=== PATIENT | male | born 1950 | race Two or more races ===

== ENCOUNTER 2017-11-25 11:44 | Outpatient (CLI) | payer OTHER ==
[~2017-11-25 11:44] MED LIST: CARDIZEM CD300 MG; CARDURA8 MG; CEFADROXIL500 MG PO; LISINOPRIL40 MG; TRAMADOL HCL50 MG PO
== END 2017-11-25 11:50 | disposition home or self-care (01) ==
LOC: LAB 11:44
DX: N39.0 Urinary tract infection, site not specified (principal); D68.8 Other specified coagulation defects

== ENCOUNTER 2017-11-25 12:07 | Outpatient (CLI) | payer OTHER | END 2017-11-25 14:40 | disposition home or self-care (01) | LOC: RAD 12:07 | DX: M20.41 Other hammer toe(s) (acquired), right foot (principal); M20.42 Other hammer toe(s) (acquired), left foot ==

== ENCOUNTER 2017-11-26 08:25 | Outpatient (CLI) | payer OTHER | END 2017-11-26 08:29 | disposition home or self-care (01) | LOC: LAB 08:25 | DX: D68.8 Other specified coagulation defects (principal); N39.0 Urinary tract infection, site not specified ==

== ENCOUNTER 2018-03-14 10:21 | Outpatient (CLI) | payer OTHER | END 2018-03-14 10:51 | disposition home or self-care (01) | LOC: RX STUDY 10:21 | DX: L03.317 Cellulitis of buttock (principal); D12.6 Benign neoplasm of colon, unspecified; R13.14 Dysphagia, pharyngoesophageal phase; Z86.010 Personal history of colon polyps ==

== ENCOUNTER 2018-12-17 10:11 | Outpatient (CLI) | payer OTHER | END 2018-12-17 15:49 | disposition home or self-care (01) | LOC: LAB 10:11 | DX: M15.0 Primary generalized (osteo)arthritis (principal); E03.8 Other specified hypothyroidism; R27.8 Other lack of coordination; D51.8 Other vitamin B12 deficiency anemias; G72.89 Other specified myopathies; E11.40 Type 2 diabetes mellitus with diabetic neuropathy, unspecified ==

== ENCOUNTER → 2019-01-13 | Outpatient (CLI) | payer OTHER ==
[~2019-01-13] MED LIST changes: +DOXYCYCLINE HY100 MG PO
== END | disposition home or self-care (01) ==
LOC: NUCLEAR 13:00
DX: R55 Syncope and collapse (principal)

== ENCOUNTER 2019-01-18 13:52 | Inpatient (IN) | payer OTHER ==
[~2019-01-18] VITALS: Ht 185.4 cm; Wt 81.6 kg
[~2019-01-18 13:52] MED LIST changes: -DOXYCYCLINE HY100 MG PO
[2019-01-24] MEDS ORDERED: TRAMADOL HCL50 MG PO (08:26)
[2019-01-24] MEDS ORDERED: DOXYCYCLINE HY100 MG PO (08:26)
== END 2019-01-24 12:51 | disposition home or self-care (01) | DRG 199 ==
LOC: ER 13:52 → SEC-K 14:42 → MEDJ 14:42 → SURH 14:42 → MEDJ 17:49 → SURH 01-19 20:13
PROVIDERS: ADMIT Surgery
PROC: 4A12X4Z Monitoring of Cardiac Electrical Activity, External Approach (ICD-10-PCS; 2019-01-18)
PROC: BW21ZZZ Computerized Tomography (CT Scan) of Abdomen and Pelvis (ICD-10-PCS; 2019-01-18)
PROC: BW24ZZZ Computerized Tomography (CT Scan) of Chest and Abdomen (ICD-10-PCS; 2019-01-18)
PROC: 0W9B00Z Drainage of Left Pleural Cavity with Drainage Device, Open Approach (ICD-10-PCS; principal; 2019-01-18 16:00)
PROC: B246ZZZ Ultrasonography of Right and Left Heart (ICD-10-PCS; 2019-01-20)
PROC: 3E0F7GC Introduction of Other Therapeutic Substance into Respiratory Tract, Via Natural or Artificial Opening (ICD-10-PCS; 2019-01-23)
DX: S27.0XXA Traumatic pneumothorax, initial encounter (principal); J18.1 Lobar pneumonia, unspecified organism; J98.11 Atelectasis; J90 Pleural effusion, not elsewhere classified; I13.0 Hypertensive heart and chronic kidney disease with heart failure and stage 1 through stage 4 chronic kidney disease, or unspecified chronic kidney disease; I69.351 Hemiplegia and hemiparesis following cerebral infarction affecting right dominant side; W01.0XXA Fall on same level from slipping, tripping and stumbling without subsequent striking against object, initial encounter; N18.1 Chronic kidney disease, stage 1; I50.89 Other heart failure; E78.49 Other hyperlipidemia; I25.10 Atherosclerotic heart disease of native coronary artery without angina pectoris; I49.8 Other specified cardiac arrhythmias; D50.0 Iron deficiency anemia secondary to blood loss (chronic); K57.30 Diverticulosis of large intestine without perforation or abscess without bleeding

== ENCOUNTER 2019-03-29 13:47 | Outpatient (CLI) | payer OTHER ==
[~2019-03-29 13:47] MED LIST changes: +DOXYCYCLINE HY100 MG PO
== END 2019-03-29 15:46 | disposition home or self-care (01) ==
LOC: TOM 13:47
DX: S05.92XA Unspecified injury of left eye and orbit, initial encounter (principal)

== ENCOUNTER 2019-04-08 | Outpatient (CLI) | payer OTHER | END 2019-04-08 15:00 | disposition home or self-care (01) | LOC: LAB | DX: Z01.812 Encounter for preprocedural laboratory examination (principal); Z01.810 Encounter for preprocedural cardiovascular examination ==

== ENCOUNTER → 2019-10-20 | Outpatient (CLI) | payer OTHER | END | disposition home or self-care (01) | LOC: MRI 10-19 14:50 | DX: M54.5 Low back pain (principal) | CPT/HCPCS: 72148 ==

== ENCOUNTER 2020-09-11 10:36 | Outpatient (CLI) | payer OTHER | END 2020-09-11 10:45 | disposition home or self-care (01) | LOC: NUCLEAR 10:36 | PROVIDERS: ATTEND Internal Medicine Cardiovascular Disease | DX: I50.22 Chronic systolic (congestive) heart failure (principal) | CPT/HCPCS: 78472; 78496; A9560 ==

== ENCOUNTER 2020-10-03 20:08 | Emergency (ER) | payer OTHER ==
[~2020-10-03] VITALS: Ht 180.3 cm; Wt 88.0 kg
[2020-10-03] MEDS ORDERED: CARVEDILOL12.5 MG (20:29)
[2020-10-03] MEDS ORDERED: [UNRECOGNIZED DRUG - OTHER] (20:30)
== END 2020-10-03 22:38 | disposition home or self-care (01) ==
LOC: ER 20:08
DX: S01.82XA Laceration with foreign body of other part of head, initial encounter (principal); S80.02XA Contusion of left knee, initial encounter; W18.09XA Striking against other object with subsequent fall, initial encounter; Y93.89 Activity, other specified; Y92.098 Other place in other non-institutional residence as the place of occurrence of the external cause; Y99.8 Other external cause status

== ENCOUNTER → 2020-10-09 | Emergency (ER) | payer OTHER ==
[~2020-10-09] MED LIST changes: +CARVEDILOL12.5 MG; +[UNRECOGNIZED DRUG - OTHER]
== END | disposition left against medical advice (07) ==
LOC: ER 16:34
DX: Z53.20 Procedure and treatment not carried out because of patient's decision for unspecified reasons (principal)

== ENCOUNTER 2020-10-14 15:41 | Emergency (ER) | payer OTHER ==
[~2020-10-14] VITALS: Ht 180.3 cm; Wt 88.0 kg
== END 2020-10-14 18:35 | disposition home or self-care (01) ==
LOC: ER 15:41
DX: Z48.02 Encounter for removal of sutures (principal)

== ENCOUNTER 2023-06-07 11:48 | Inpatient (IN) | payer OTHER ==
[~2023-06-07] VITALS: Ht 180.3 cm; Wt 77.6 kg
[2023-06-29] MEDS ORDERED: MAGNESIUM400 MG PO (10:08)
[2023-06-29] MEDS ORDERED: THIAMINE H100 MG/1 M IV (10:08)
[2023-06-29] MEDS ORDERED: FOLIC ACID1 MG PO (10:08)
[2023-06-29] MEDS ORDERED: CARVEDILOL25 MG PO (10:08)
[2023-06-29] MEDS ORDERED: FUROSEMIDE20 MG PO (10:08)
[2023-06-29] MEDS ORDERED: Xopenex 0.63 MG/3 ML IH (10:08)
[2023-06-29] MEDS ORDERED: INTEGRA PLUS C1 EACH PO (10:08)
[2023-06-29] MEDS ORDERED: PANTOPRAZOLE SO40 MG PO (10:08)
[2023-06-29] MEDS ORDERED: VITAMIN B-121000 MC2 SL (10:08)
== END 2023-06-29 18:35 | disposition home or self-care (01) | DRG 981 ==
LOC: ER 11:48 → MEDI 23:08 → SEC-K 23:15 → SURH 23:56
PROVIDERS: Emergency Medicine; Internal Medicine; Internal Medicine Infectious Disease; ADMIT Internal Medicine; ATTEND Internal Medicine
PROC: BR29ZZZ Computerized Tomography (CT Scan) of Lumbar Spine (ICD-10-PCS; 2023-06-07)
PROC: B24BYZZ Ultrasonography of Heart with Aorta using Other Contrast (ICD-10-PCS; 2023-06-07)
PROC: 8E0ZXY6 Isolation (ICD-10-PCS; 2023-06-07)
PROC: 3E0F7SF Introduction of Other Gas into Respiratory Tract, Via Natural or Artificial Opening (ICD-10-PCS; 2023-06-07)
PROC: BW24ZZZ Computerized Tomography (CT Scan) of Chest and Abdomen (ICD-10-PCS; 2023-06-08)
PROC: B020ZZZ Computerized Tomography (CT Scan) of Brain (ICD-10-PCS; 2023-06-08)
PROC: BR39ZZZ Magnetic Resonance Imaging (MRI) of Lumbar Spine (ICD-10-PCS; 2023-06-08)
PROC: BW24ZZZ Computerized Tomography (CT Scan) of Chest and Abdomen (ICD-10-PCS; 2023-06-13)
PROC: 0W9B3ZZ Drainage of Left Pleural Cavity, Percutaneous Approach (ICD-10-PCS; 2023-06-13)
PROC: 0JD90ZZ Extraction of Buttock Subcutaneous Tissue and Fascia, Open Approach (ICD-10-PCS; principal; 2023-06-15)
PROC: 0JD90ZZ Extraction of Buttock Subcutaneous Tissue and Fascia, Open Approach (ICD-10-PCS; 2023-06-23)
DX: I13.0 Hypertensive heart and chronic kidney disease with heart failure and stage 1 through stage 4 chronic kidney disease, or unspecified chronic kidney disease (principal); I50.23 Acute on chronic systolic (congestive) heart failure; L89.313 Pressure ulcer of right buttock, stage 3; L89.323 Pressure ulcer of left buttock, stage 3; J10.08 Influenza due to other identified influenza virus with other specified pneumonia; J91.8 Pleural effusion in other conditions classified elsewhere; J98.11 Atelectasis; N17.9 Acute kidney failure, unspecified; N39.0 Urinary tract infection, site not specified; J10.1 Influenza due to other identified influenza virus with other respiratory manifestations; B95.2 Enterococcus as the cause of diseases classified elsewhere; N18.9 Chronic kidney disease, unspecified; J44.9 Chronic obstructive pulmonary disease, unspecified; Z86.73 Personal history of transient ischemic attack (TIA), and cerebral infarction without residual deficits; H54.61 Unqualified visual loss, right eye, normal vision left eye; M47.897 Other spondylosis, lumbosacral region
CPT/HCPCS: 72158